=== PATIENT | female | born 1940 ===

== ENCOUNTER 2018-03-29 07:40 | Outpatient (CLI) | payer OTHER | END 2018-03-29 08:30 | disposition home or self-care (01) | LOC: NUCLEAR 07:40 | DX: I25.10 Atherosclerotic heart disease of native coronary artery without angina pectoris (principal); R06.02 Shortness of breath | CPT/HCPCS: 78452; 93017; A9500; J0153 ==

== ENCOUNTER 2018-07-24 12:13 | Outpatient (CLI) | payer OTHER | END 2018-07-24 15:00 | disposition home or self-care (01) | LOC: LAB 12:13 | DX: A49.2 Hemophilus influenzae infection, unspecified site (principal); J11.1 Influenza due to unidentified influenza virus with other respiratory manifestations ==

== ENCOUNTER 2025-03-26 09:37 | Outpatient (CLI) | payer OTHER | END 2025-03-26 09:38 | disposition home or self-care (01) | LOC: NUCLEAR 09:37 | PROVIDERS: ATTEND Internal Medicine Rheumatology | DX: M81.0 Age-related osteoporosis without current pathological fracture (principal) ==